=== PATIENT | male | born 1980 | race Caucasian/White ===

== ENCOUNTER 2022-07-04 22:39 | Emergency (ER) | payer OTHER ==
--- OUTSIDE RECORDS SUMMARY | 2022-07-04 22:43 | XMS REPORT | Continuity of Care Document ---
:1980 Author Organization [facility] t Address [address] [place] [address] Care Team Providers Name Role Phone PCP, PATIENT DOES NOT HAVE A Primary Care Physician UnavailVANGIE Barajas Attending Clinician Unavailable Vangie Zepeda MD Attending Clinician Nancy Jones Attending Clinician Doctor Unassigned, [place] Attending Clinician Unavailable Janey Bradley MD Attending Clinician Baylee Starkey Attending Clinician Lab, Adc Fam Pob I Attending Clinician Unavailable BAYLEE CURTIS Attending Clinician Unavailable ZION BRICENO Attending Clinician Unavailable CORKY HARLEY Attending Clinician Unavailable ZION BRICENO Admitting Clinician Unavailable CORKY HARLEY Admitting Clinician Unavailable Payers Payer Name Policy Type Policy Number Effective Date Expiration Date Harris jorge [facility] [id number] 2014 PPO 00:00:00 Problems Condition Condition Condition Status Onset Resolution Last Treating Co mments Source Name Details Category Date Date Treatment Clinician Date No known No known Disease Unive rs active active ity of problems problems [facility] Allergies, Adverse Reactions, Alerts Allergy Allergy Status Severity Reaction(s) Onset Inactive Treating Comm ents Source Name Type Date Date Clinician IODINE Drug Active Hives 2020-0 Univers AND Class 1-10 ity of IODIDE 00:00: [place] CONTAINI 00 Medical NG Branch PRODUCTS Iodine Propensi Active Hives 2019- Univers And ty to 1-10 ity of Iodide adverse 00:00: [place] Containi reaction 00 Medica l ng s Branch Products Social History Social Habit Start Date Stop Date Quantity Comments Source Exposure to Not sure [facility] SARS-CoV-[address] [facility] (event) Branch Tobacco use and 2021-08-29 2021-08-29 Current user Univers ity of exposure 00:00:00 00:00:00 [facility] Alcohol intake 2021-08-29 2021-08-29 Current drinker Unive rsity of 00:00:00 00:00:[address] [facility] (finding) [place] Sex Assigned At [birth year] Universit y of 00:00:00 00:00:00 [facility] Smoking Status Start Date Stop Date Source Current every day smoker 2021-08-29 00:00:00 Uni versity of [facility] Unknown if ever smoked Universit y of [facility] Medications Ordered Filled Start Stop Current Ordering Indication Dosage Frequency Signature Comments Components Source Medication Medication Date Date Medication? Clinician (SIG) Name Name azelastine Yes [id number] 1{spray Use 1 Univers 137 mcg 1-10 } [place] in ity of (0.1 %) 00:00: each [place] nasal spray 00 nostril 2 Med ical (two) Branch times daily. Use in each nostril as directed fluticasone Yes [id number] 1{spray Use 1 Univers propionate 1-10 } [place] in ity o f 50 00:00: each [place] mcg/actuati 00 nostril Medic al on nasal daily. Branch spray benzonatate Yes [id number] 200mg Take 2 Univers 100 mg 1-10 capsules ity of capsule 00:00: by mouth [place] 00 every 8 Medical (eight) Branch hours as needed for Cough. amoxicillin 2021- No [id number] 1{tbl} Take 1 Univers -clavulanat 1-10 -18 tablet by it y of e 00:00: 05:59 mouth 2 [place] (AUGMENTIN) 00 :00 (two) Medical 875-125 mg times Branch per tablet daily for 7 days. casirivimab 2020- No 1200mg 1,200 mg, Univers -imdevimab 04-30 IV ity of (REGEN-COV 08:30: 08:16 [place], [place] (EUA[place] 00 :00 ONCE, 1 Medical injection dose, Sat Branc h 1,200 mg 04/30/21 at 0330, Routine casirivimab 2020- No 1200mg 1,200 mg, Univers -imdevimab 04-30 IV ity of (REGEN-COV 08:30: 08:16 [place] (EUA[place] 00 :00 ONCE, 1 Medical injection dose, Sat Branc h 1,200 mg 04/30/21 at 0330, Routine iopamidol 2020- No [id number] 100mL 100 mL, Univers (ISOVUE 04-30 Intravenou ity o f 370-500 mL) 08:00: 06:40 s, ONCE, 1 [place] injection 00 :00 dose, Sat Medic al 100 mL 04/30/21 at Branch 0300, Routine iopamidol 2020-0 2020- No [id number] 100mL 100 mL, Univers (ISOVUE 04-30 Intravenou ity o f 370-500 mL) 08:00: 06:40 s, ONCE, 1 [place] injection 00 :00 dose, Sat Medic al 100 mL 04/30/21 at Branch 0300, Routine methylpredn 2020- No 125mg 125 mg, IV Univers isolone sod 04-30 Piggyback, i ty of succ 07:15: 06:26 ONCE, 1 [place] (SOLU-MEDRO 00 :00 dose, Sat Med ical L) 04/30/21 at Branch injection 0215, STAT 125 mg diphenhydrA 2020- No 25mg 25 mg, Uni vers MINE 04-30 Slow IV ity of (BENADRYL) 07:15: 06:32 Push, [place] injection 00 :00 ONCE, 1 Medical 25 mg dose, Sat Branch 04/30/21 at 0215, STAT methylpredn 2020- No 125mg 125 mg, IV Univers isolone sod 04-30 Piggyback, i ty of succ 07:15: 06:26 ONCE, 1 [place] (SOLU-MEDRO 00 :00 dose, Sat Med ical L) 04/30/21 at Branch injection 0215, STAT 125 mg diphenhydrA 2020- No 25mg 25 mg, Uni vers MINE 04-30 Slow IV ity of (BENADRYL) 07:15: 06:32 Push, [place] injection 00 :00 ONCE, 1 Medical 25 mg dose, Sat Branch 04/30/21 at 0215, STAT benzonatate Yes [id number] 200mg Take 1 Univers 200 mg 9-11 [id number] capsule by ity of capsule 00:00: mouth 3 [place] (three) Medical times Branch daily as needed for Cough. ibuprofen Yes [id number] 800mg Take 1 Univers 800 mg 9-11 [id number] tablet by ity o f tablet 00:00: mouth [place] 00 every 8 Medical (eight) Branch hours as needed for Temp > 38.5 C. albuterol Yes [id number] 2{puff} Inhale 2 Univers 90 9-11 [id number] Puffs ity of mcg/actuati 00:00: every 4 [place] as on inhaler 00 (four) Medical hours as Branch needed for Wheezing or Shortness of Breath. benzonatate Yes [id number] 200mg Take 1 Univers 200 mg 9-11 [id number] capsule by ity of capsule 00:00: mouth 3 [place] 00 (three) Medical times Branch daily as needed for Cough. ibuprofen Yes [id number] 800mg Take 1 Univers 800 mg 9-11 [id number] tablet by ity o f tablet 00:00: mouth [place] 00 every 8 Medical (eight) Branch hours as needed for Temp > 38.5 C. albuterol Yes [id number] 2{puff} Inhale 2 Univers 90 9-11 [id number] Puffs ity of mcg/actuati 00:00: every 4 [place] as on inhaler 00 (four) Medical hours as Branch needed for Wheezing or Shortness of Breath. ibuprofen Yes [id number] 800mg Take 1 Univers 800 mg 9-11 [id number] tablet by ity o f tablet 00:00: mouth [place] 00 every 8 Medical (eight) Branch hours as needed for Temp > 38.5 C. albuterol 0 Yes [id number] 2{puff} Inhale 2 Univers 90 9-11 [id number] Puffs ity of mcg/actuati 00:00: every 4 [place] as on inhaler 00 (four) Medical hours as Branch needed for Wheezing or Shortness of Breath. benzonatate 0 Yes [id number] 200mg Take 1 Univers 200 mg 9-11 [id number] capsule by ity of capsule 00:00: mouth 3 [place] 00 (three) Medical times Branch daily as needed for Cough. ibuprofen Yes [id number] 800mg Take 1 Univers 800 mg 9-11 [id number] tablet by ity o f tablet 00:00: mouth [place] 00 every 8 Medical (eight) Branch hours as needed for Temp > 38.5 C. albuterol Yes [id number] 2{puff} Inhale 2 Univers 90 9-11 [id number] Puffs ity of mcg/actuati 00:00: every 4 [place] as on inhaler 00 (four) Medical hours as Branch needed for Wheezing or Shortness of Breath. benzonatate 0 2- No [id number] 200mg Take 1 Univers 200 mg 9-11 - [id number] capsule by ity of capsule 00:00: 00:00 mouth 3 [place] 00 :00 (three) Medical times Branch daily as needed for Cough. ibuprofen 2020-0 Yes [id number] 800mg Take 1 U nivers 800 mg 1-02 tablet by ity of tablet 00:00: mouth [place] 00 every 8 Medical (eight) Branch hours. traMADol 50 2020-0 Yes [id number] 50mg Take 1 Univers mg tablet 1-02 tablet by ity o f 00:00: mouth [place] 00 every 6 Medical (six) Branch hours as needed for Pain (scale 4-6). ibuprofen 2020-0 Yes [id number] 800mg Take 1 U nivers 800 mg 1-02 tablet by ity of tablet 00:00: mouth [place] 00 every 8 Medical (eight) Branch hours. traMADol 50 2020-0 Yes [id number] 50mg Take 1 Univers mg tablet 1-02 tablet by ity o f 00:00: mouth [place] 00 every 6 Medical (six) Branch hours as needed for Pain (scale 4-6). ibuprofen 2020-0 Yes [id number] 800mg Take 1 U nivers 800 mg 1-02 tablet by ity of tablet 00:00: mouth [place] 00 every 8 Medical (eight) Branch hours. traMADol 50 2020-0 Yes [id number] 50mg Take 1 Univers mg tablet 1-02 tablet by ity o f 00:00: mouth [place] 00 every 6 Medical (six) Branch hours as needed for Pain (scale 4-6). ibuprofen 2020-0 Yes [id number] 800mg Take 1 U nivers 800 mg 1-02 tablet by ity of tablet 00:00: mouth [place] 00 every 8 Medical (eight) Branch hours. ibuprofen 2020-0 Yes [id number] 800mg Take 1 U nivers 800 mg 1-02 tablet by ity of tablet 00:00: mouth [place] 00 every 8 Medical (eight) Branch hours. traMADol 50 2020-0 Yes [id number] 50mg Take 1 Univers mg tablet 1-02 tablet by ity o f 00:00: mouth [place] 00 every 6 Medical (six) Branch hours as needed for Pain (scale 4-6). ibuprofen 2020-0 Yes [id number] 800mg Take 1 U nivers 800 mg 1-02 tablet by ity of tablet 00:00: mouth [place] 00 every 8 Medical (eight) Branch hours. traMADol 50 2020-0 Yes [id number] 50mg Take 1 Univers mg tablet 1-02 tablet by ity o f 00:00: mouth [place] 00 every 6 Medical (six) Branch hours as needed for Pain (scale 4-6). traMADol 50 2020-0 Yes [id number] 50mg Take 1 Univers mg tablet 1-02 tablet by ity o f 00:00: mouth [place] 00 every 6 Medical (six) Branch hours as needed for Pain (scale 4-6). ibuprofen 2020-0 Yes [id number] 800mg Take 1 U nivers 800 mg 1-02 tablet by ity of tablet 00:00: mouth [place] 00 every 8 Medical (eight) Branch hours. traMADol 50 2020-0 Yes [id number] 50mg Take 1 Univers mg tablet 1-02 tablet by ity o f 00:00: mouth [place] 00 every 6 Medical (six) Branch hours as needed for Pain (scale 4-6). ibuprofen 2020-0 Yes [id number] 800mg Take 1 U nivers 800 mg 1-02 tablet by ity of tablet 00:00: mouth [place] 00 every 8 Medical (eight) Branch hours. traMADol 50 2020-0 Yes [id number] 50mg Take 1 Univers mg tablet 1-02 tablet by ity o f 00:00: mouth [place] 00 every 6 Medical (six) Branch hours as needed for Pain (scale 4-6). ibuprofen 2020-0 Yes [id number] 800mg Take 1 U nivers 800 mg 1-02 tablet by ity of tablet 00:00: mouth [place] 00 every 8 Medical (eight) Branch hours. traMADol 50 2020-0 Yes [id number] 50mg Take 1 Univers mg tablet 1-02 tablet by ity o f 00:00: mouth [place] 00 every 6 Medical (six) Branch hours as needed for Pain (scale 4-6). ibuprofen 2020-0 Yes [id number] 800mg Take 1 U nivers 800 mg 1-02 tablet by ity of tablet 00:00: mouth [place] 00 every 8 Medical (eight) Branch hours. traMADol 50 2020-0 Yes [id number] 50mg Take 1 Univers mg tablet 1-02 tablet by ity o f 00:00: mouth [place] 00 every 6 Medical (six) Branch hours as needed for Pain (scale 4-6). ibuprofen 2020-0 Yes [id number] 800mg Take 1 U nivers 800 mg 1-02 tablet by ity of tablet 00:00: mouth [place] 00 every 8 Medical (eight) Branch hours. traMADol 50 2020-0 Yes [id number] 50mg Take 1 Univers mg tablet 1-02 tablet by ity o f 00:00: mouth [place] 00 every 6 Medical (six) Branch hours as needed for Pain (scale 4-6). Immunizations Ordered Filled Immunization Date Status Comments [facility] e Immunization Name Name Td 2018-09-11 Completed University of 00:00:00 [facility] Td 2018-09-11 Completed University of 00:00:00 [facility] Td 2018-09-11 Completed University of 00:00:00 [facility] Td 2018-09-11 Completed University of 00:00:00 [facility] Td 2018-09-11 Completed University of 00:00:00 [facility] Td 2018-09-11 Completed University of 00:00: [facility] Td 2018-09-11 Completed University of 00:00:00 [facility] Td 2018-09-11 Completed University of 00:00:00 [place] [facility] Td 2018-09-11 Completed University of 00:00:00 [place] [facility] Td 2018-09-11 Completed University of 00:00:00 [place] [facility] Td 2018-09-11 Completed University of 00:00:00 [facility] Vital Signs Vital Name Observation Time Observation Value Comments Source Systolic blood 2021-08-30 00:59:00 116 mm[Hg] Univer sity of pressure [facility] Branch Diastolic blood 2021-08-30 00:59:00 79 mm[Hg] Unive rsity of pressure [facility] Heart rate 2021-08-30 00:59:00 99 /min Universi ty of [facility] Body temperature 2021-08-30 00:59:00 36.94 [place] Univ ersity [facility] Respiratory rate 2021-08-30 00:59:00 18 /min Univ ersity [facility] Body height 2021-08-30 00:59:00 193 cm Universi ty [facility] Body weight 2021-08-30 00:59:00 122.018 kg Universi ty of [facility] BMI 2021-08-30 00:59:00 32.74 kg/m2 Universi ty [facility] Oxygen saturation in 2021-08-30 00:59:00 98 /min University of Arterial blood by [facility] Pulse oximetry Branch Systolic blood 2021-04-30 09:28:00 122 mm[Hg] Univer sity of pressure [facility] Diastolic blood 2021-04-30 09:28:00 73 mm[Hg] Unive rsity of pressure [facility] Heart rate 2021-04-30 09:28:00 74 /min Universi ty of [facility] Branch Respiratory rate 2021-04-30 09:28:00 20 /min Univ ersity [facility] Oxygen saturation in 2021-04-30 09:28:00 95 /min University of Arterial blood by [facility] Pulse oximetry Branch Body temperature 2021-04-30 08:24:00 37.28 [place] Univ ersity of [facility] Body height 2021-04-30 02:35:00 190.5 cm Universi ty of [facility] Body weight 2021-04-30 02:35:00 122.471 kg [facility] BMI 2021-04-30 02:35:00 33.75 kg/m2 [facility] Procedures Procedure Date / Time Performing Clinician Source Performed POCT MOLECULAR FLU 2021-08-30 01:07:00 Nancy Jones [facility] ASSIGNMENT OF BENEFITS 2021-08-30 00:43:42 Doctor Unassigned, No [facility] Name [facility] CT CHEST PULMONARY 2021-04-30 06:47:34 Janey Bradley [facility] ANGIOGRAM [facility] Branch D-DIMER 2021-04-30 04:47:00 Janey Bradley [facility] URINALYSIS 2021-04-30 04:01:00 Janey Bradley [facility] COMP. METABOLIC PANEL 2021-04-30 03:41:00 Janey Bradley [facility] ([id number]) Medical Branch CBC WITH DIFF 2021-04-30 03:41:00 Janey Bradley [facility] COVID-19 (ID NOW RAPID 2021-04-30 03:41:00 Janey Bradley [facility] TESTING) Medical Branch CONSENT/REFUSAL FOR 2021-04-30 02:26:10 Doctor Unassigned, No [facility] DIAGNOSIS AND TREATMENT [facility] NOTICE OF PRIVACY 2021-04-30 02:24:37 Doctor Unassigned, No [facility] PRACTICES Name [facility] Branch AUTHORIZATION FOR 2019-10-06 06:01:00 Doctor Unassigned, No [facility] RELEASE OF [facility] Encounters Start End Encounter Admission Attending Care Care Encounter Source Date/Time Date/Time Type Type Clinicians Facility Department ID 2021-06-20 Emergency [facility] [id number] Univers 21:57:11 [facility] 2021-08-29 2021-08-29 Outpatient Virgil ZEPEDA [facility] [id number] Univers 19:00:00 19:37:18 VANGIE [facility] 2021-08-29 2021-08-29 Urgent Vangie Zepeda [facility] [id number] Univers 19:00:00 19:20:00 Care Nancy Jones HEALTH [id number] ity of [facility] 4.2.7.2.686 [place] as RADHA?BLEA [phone] Oh dical [place] [address] [place] [facility] 2021-08-29 2021-08-29 Orders Doctor CANDIDA [id number] Univers 00:00:00 00:00:00 Only Unassigned, HEBERT [id number] ity of [place] [facility] 4.2.7.2.686 Naresh as [id number] [facility] [address] [place] 2021-04-29 2021-04-30 Emergency [facility] [id number] Univers 21:59:00 04:45:00 Janey Harris [place] 350.1.13.10 ity of [place] 4[place]7.2.686 [place] [phone] [facility] [address] [place] 2021-04-29 2021-04-29 Orders Doctor CANDIDA [id number] Univers 00:00:00 00:00:00 Only Unassigned, HEBERT 350.1.13.10 ity of [place] [facility] 4.2.7.2.686 Naresh as [id number] [facility] [address] [place] 2020-01-01 2020-01-01 Telephone CANDIDA Curtis [id number] Univers 00:00:00 00:00:00 Baylee AMBROSIO 350.1.13.10 i ty of HOSPITAL 4.2.7.2.686 [place] as [id number] [facility] [address] [place] 2019-12-31 2019-12-31 [employer] [facility], Adc Fam Pob I [facility] [id number]. [id number] Univers 11:37:08 11:47:08 Visit Baylee Curtis [facility] 350.1.13.10 ity of [place] 4.2.7.2.686 Na[place] as Professio [phone] Oh karin davis [address] [place] [address] 2019-12-31 2019-12-31 Outpatient R KIRSTEN [facility] [id number] Univers 11:40:00 11:40:00 BAYLEE cline [facility] 2019-10-06 2019-10-06 Orders Doctor CANDIDA [id number] Univers 00:00:00 00:00:00 Only Unassigned, HEBERT 350.1.13.10 ity of [place] [facility] 4.2.7.2.686 Na[place] as [id number] [address] 2019-08-29 2019-08-29 Emergency [facility] [id number] Univers 02:08:14 04:41:00 ZION cline [facility] 2019-08-21 2019-08-21 [facility] [id number] Univers 05:16:23 06:15:00 CORKY [facility] Results Test Description Test Time Test Comments Results Result Comments Source POCT MOLECULAR FLU 2021-08-30 01:19:28 Test Item Value Reference Range Interpretation Comme nts POCT Molecular FluA (test code = 28639-7) Negative Negative POCT Molecular FluB (test code = 40008-8) Negative Negative Lab Interpretation (test code = 32393-2) Normal [id number] 05:24:41 Test Item Value Reference Interpretation Comments Range D-DIMER (test code = See_Comment H [Autom ated 8230858086) message] The system which generated this result transmitted reference range : <0.41 ?g/mL (FEU). The reference range was not used to interpret this result as normal/abnormal . PHIL (test code = This test may be PHIL) used in conjunction with a clinical pretest probability (PTP) assessment model to exclude venous thromboembolism (VTE) in patients suspected of deep venous thrombosis (DVT) and pulmonary embolism (PE) A D-Dimer value less than 0.50 ?g/ml (FEU) has a negative predicative value of 96 to 100% (95% CI)and 97 to 100% (95% CI) as an aid in the diagnosis of deep vein thrombosis (DVT) and pulmonary embolism when there is low or moderate pretest probability of PE or DVT. D-Dimer values are expressed in initial fibrinogen equivalent units (FEU)" The assay results should be used with other information, including the clinical context, in forming a diagnosis. Lab Interpretation Abnormal (test code = 01033-8) [id number] 05:24:41 Test Item Value Reference Interpretation Comments Range D-DIMER (test code = See_Comment H [Autom ated [id number]) message] The system which generated this result transmitted reference range : <0.41 ?g/mL (FEU). The reference range was not used to interpret this result as normal/abnormal . PHIL (test code = This test may be PHIL) used in conjunction with a clinical pretest probability (PTP) assessment model to exclude venous thromboembolism (VTE) in patients suspected of deep venous thrombosis (DVT) and pulmonary embolism (PE) A D-Dimer value less than 0.50 ?g/ml (FEU) has a negative predicative value of 96 to 100% (95% CI)and 97 to 100% (95% CI) as an aid in the diagnosis of deep vein thrombosis (DVT) and pulmonary embolism when there is low or moderate pretest probability of PE or DVT. D-Dimer values are expressed in initial fibrinogen equivalent units (FEU)" The assay results should be used with other information, including the clinical context, in forming a diagnosis. Lab Interpretation Abnormal (test code = 11472-1) [facility] 04:39:22 Test Item Value Reference Range Interpretation Comments APPEARANCE (test code = Clear Clear 9497205611) COLOR (test code = Yellow Yellow 0081531390) PH (test code = 4.8-8.0 6678371880) SP GRAVITY (test code = 1.003-1.030 2670930325) GLU U QUAL (test code = Normal Normal 9403645058) BLOOD (test code = Negative Negative Interfere nce from 6355998104) ascorbic acid m ay cause false neg ative results. KETONES (test code = Negative Negative 6917207577) PROTEIN (test code = Negative Negative 2887-8) UROBILIN (test code = Normal Normal 6591932185) BILIRUBIN (test code = Negative Negative 0480374854) NITRITE (test code = Negative Negative 2091775584) LEUK FIDEL (test code = Negative Negative 3219983159) RBC/HPF (test code = See_Comment [Autom ated message] 1024368808) The system Jingdong generated this result transmitted ref erence range: 0 - 3 HP F. The reference range was not used to int erpret this result as normal/abnormal . WBC/HPF (test code = <1 See_Comment [Autom ated message] 4234052913) The system Jingdong generated this result transmitted ref erence range: 0 - 5 HP F. The reference range was not used to int erpret this result as normal/abnormal . BACTERIA (test code = Few Negative A 1664611484) Lab Interpretation (test Abnormal code = 99716-1) [facility] 04:39:22 Test Item Value Reference Range Interpretation Comments APPEARANCE (test code = Clear Clear 0195448459) COLOR (test code = Yellow Yellow 6785047344) PH (test code = 4.8-8.0 6972985966) SP GRAVITY (test code = 1.003-1.030 4049107522) GLU U QUAL (test code = Normal Normal 1927261438) BLOOD (test code = Negative Negative Interfere nce from 3628415640) ascorbic acid m ay cause false neg ative results. KETONES (test code = Negative Negative 5964768937) PROTEIN (test code = Negative Negative 2887-8) UROBILIN (test code = Normal Normal 0138419572) BILIRUBIN (test code = Negative Negative 9286755236) NITRITE (test code = Negative Negative 7634646687) LEUK FIDEL (test code = Negative Negative 5475700313) RBC/HPF (test code = See_Comment [Autom ated message] 5852298798) The system Jingdong generated this result transmitted ref erence range: 0 - 3 HP F. The reference range was not used to int erpret this result as normal/abnormal . WBC/HPF (test code = <1 See_Comment [Autom ated message] 1544015866) The system Jingdong generated this result transmitted ref erence range: 0 - 5 HP F. The reference range was not used to int erpret this result as normal/abnormal . BACTERIA (test code = Few Negative A 7991193793) Lab Interpretation (test Abnormal code = 06717-8) [facility] (24219)2021-04-30 04:27:36 Test Item Value Reference Range Interpretation Comments NA (test code = 137 mmol/L 135-145 1031046904) K (test code = 3.6 mmol/L 3.5-5.0 3277496549) CL (test code = 100 mmol/L 98-108 9801956260) CO2 TOTAL (test code 28 mmol/L 23-31 = 0230502728) AGAP (test code = 2-16 0250711106) BUN (test code = 8 mg/dL 7-23 7243447985) GLUCOSE (test code = 103 mg/dL 70-110 7821523565) CREATININE (test code 0.96 mg/dL 0.60-1.25 = 2803245026) TOTAL BILI (test code 0.4 mg/dL 0.1-1.1 = 1923671999) CALCIUM (test code = 8.8 mg/dL 8.6-10.6 0454351828) T PROTEIN (test code 7.6 g/dL 6.3-8.2 = 7710538525) ALBUMIN (test code = 4.2 g/dL 3.5-5.0 0058095176) ALK PHOS (test code = 99 U/L 34-122 7837271081) ALTv (test code = 28 U/L 5-50 1742-6) AST(SGOT) (test code 32 U/L 13-40 = 7013577240) eGFR (test code = mL/min/1.73m2 3411981688) PHIL (test code = PHIL) Association of Glomerular Filtration Rate (GFR) and Staging of Kidney Disease* + + +- +| GFR (mL/min/1.73 m2) ?| With Kidney Damage ?| ?Without Kidney Damage+ ------+ ----+ ------+| ?>90 ?| ?Stage one ?| ? Normal ?+ -+ + -+| ?60-89 ?| ?Stage two ?| ? Decreased GFR ? + + +- +| ?30-59 ?| ?Stage three ?| ? Stage three ? + + +- +| ?15-29 ?| ?Stage four ? | ? Stage four ?+ -+ + -+| ?<15 (or dialysis) ? ?| ?Stage five ? | ? Stage five ?+ -+ + -+ *Each stage assumes the associated GFR level has been in effect for at least three months. ?Stages 1 to 5, with or without kidney disease, indicate chronic kidney disease. Notes: Determination of stages one and two (with eGFR >59mL/min/1.73 m2) requires estimation of kidney damage for at least three months as defined by structural or functional abnormalities of the kidney, manifested by either:Pathological abnormalities or Markers of kidney damage (including abnormalities in the composition of the blood or urine or abnormalities in imaging tests). [facility] (99990)2021-04-30 04:27:36 Test Item Value Reference Range Interpretation Comments NA (test code = 137 mmol/L 135-145 1109723607) K (test code = 3.6 mmol/L 3.5-5.0 0686321255) CL (test code = 100 mmol/L 98-108 4460318744) CO2 TOTAL (test code 28 mmol/L 23-31 = 3749980089) AGAP (test code = 2-16 2490302981) BUN (test code = 8 mg/dL 7-23 4449203546) GLUCOSE (test code = 103 mg/dL 70-110 5723283414) CREATININE (test code 0.96 mg/dL 0.60-1.25 = 5077618126) TOTAL BILI (test code 0.4 mg/dL 0.1-1.1 = 4689329817) CALCIUM (test code = 8.8 mg/dL 8.6-10.6 5671165920) T PROTEIN (test code 7.6 g/dL 6.3-8.2 = 3341264644) ALBUMIN (test code = 4.2 g/dL 3.5-5.0 1059889502) ALK PHOS (test code = 99 U/L 34-122 1935217227) ALTv (test code = 28 U/L 5-50 1742-6) AST(SGOT) (test code 32 U/L 13-40 = 6869439176) eGFR (test code = mL/min/1.73m2 5964469409) PHIL (test code = PHIL) Association of Glomerular Filtration Rate (GFR) and Staging of Kidney Disease* + + +- +| GFR (mL/min/1.73 m2) ?| With Kidney Damage ?| ?Without Kidney Damage+ ------+ ----+ ------+| ?>90 ?| ?Stage one ?| ? Normal ?+ -+ + -+| ?60-89 ?| ?Stage two ?| ? Decreased GFR ? + + +- +| ?30-59 ?| ?Stage three ?| ? Stage three ? + + +- +| ?15-29 ?| ?Stage four ? | ? Stage four ?+ -+ + -+| ?<15 (or dialysis) ? ?| ?Stage five ? | ? Stage five ?+ -+ + -+ *Each stage assumes the associated GFR level has been in effect for at least three months. ?Stages 1 to 5, with or without kidney disease, indicate chronic kidney disease. Notes: Determination of stages one and two (with eGFR >59mL/min/1.73 m2) requires estimation of kidney damage for at least three months as defined by structural or functional abnormalities of the kidney, manifested by either:Pathological abnormalities or Markers of kidney damage (including abnormalities in the composition of the blood or urine or abnormalities in imaging tests). [facility]ID [facility])2021-04-30 04:22:54 Test Item Value Reference Range Interpretation Comments SARS-CoV-2 Rapid ID NOW Positive Not Detected A (test code = 04148-0) PHIL (test code = PHIL) ID NOW COVID-19 Assay is an isothermal nucleic acid amplification test intended for the qualitative detection of nucleic acid from SARS-CoV-2 viral RNA in nasopharyngeal (LOGISTICS SOLUTION MANAGER) specimens. It is used under Emergency Use Authorization (EUA) by FDA. The limit of detection (LOD) of the assay is 125 Genome Equivalents/mL. A positive result is indicative of the presence of SARS-CoV-2 RNA. ?Clinical correlation with patient history and other diagnostic information is necessary to determine patient infection status. A negative (Not Detected) result does not preclude SARS-CoV-2 infection. In patients with a high suspicion of SARS-CoV-2 infection, negative results should be treated as presumptive negative and a new specimen should be tested with alternative nucleic acid amplification molecular test. Invalid: Please collect a new specimen for repeat patient testing if clinically indicated. Lab Interpretation Abnormal (test code = 93493-2) [facility]2021-04-30 04:22:54 Test Item Value Reference Range Interpretation Comments SARS-CoV-2 Rapid ID NOW Positive Not Detected A (test code = 46010-8) PHIL (test code = PHIL) ID NOW COVID-19 Assay is an isothermal nucleic acid amplification test intended for the qualitative detection of nucleic acid from SARS-CoV-2 viral RNA in nasopharyngeal (LOGISTICS SOLUTION MANAGER) specimens. It is used under Emergency Use Authorization (EUA) by FDA. The limit of detection (LOD) of the assay is 125 Genome Equivalents/mL. A positive result is indicative of the presence of SARS-CoV-2 RNA. ?Clinical correlation with patient history and other diagnostic information is necessary to determine patient infection status. A negative (Not Detected) result does not preclude SARS-CoV-2 infection. In patients with a high suspicion of SARS-CoV-2 infection, negative results should be treated as presumptive negative and a new specimen should be tested with alternative nucleic acid amplification molecular test. Invalid: Please collect a new specimen for repeat patient testing if clinically indicated. Lab Interpretation Abnormal (test code = 81236-4) [facility] with [id number] 04:21:53 Test Item Value Reference Range Interpretation Comments WBC (test code = See_Comment [Automated 5419-2) message] The sy stem which generated this result transmitted reference range : 4.20 - 10.70 10*3/?L. The reference range was not used to interpret this result as normal/abnormal . RBC (test code = See_Comment [Automated 233-8) message] The sy stem which generated this result transmitted reference range : 4.26 - 5.52 10*6/?L. The reference range was not used to interpret this result as normal/abnormal . HGB (test code = 14.8 g/dL 12.2-16.4 718-7) HCT (test code = 45.5 % 38.4-49.3 4544-3) MCV (test code = 84.3 fL 81.7-95.6 787-2) MCH (test code = 27.4 pg 26.1-32.7 785-6) MCHC (test code = 32.5 g/dL 31.2-35.0 786-4) RDW-SD (test code = 38.4 fL 38.5-51.6 L 70519-9) RDW-CV (test code = 12.5 % 12.1-15.4 788-0) PLT (test code = See_Comment [Automated 777-3) message] The sy stem which generated this result transmitted reference range : 150 - 328 10*3/ ?L. The reference r thony was not used to interpret this result as normal/abnormal . MPV (test code = 10.5 fL 9.8-13.0 78838-5) NRBC/100 WBC (test See_Comment [Automat ed code = 6913490423) message] The system which generated this result transmitted reference range : 0.0 - 10.0 /100 WBCs. The refer ence range was not u sed to interpret th is result as normal/abnormal . NRBC x10^3 (test code <0.01 See_Comment [Auto mated = 3765350074) message] The s ystem which generated this result transmitted reference range : 10*3/?L. The reference range was not used to interpret this result as normal/abnormal . GRAN MAT (NEUT) % 69.3 % (test code = 770-8) IMM GRAN % (test code 0.20 % = 7720408205) LYMPH % (test code = 20.9 % 736-9) MONO % (test code = 9.4 % 5905-5) EOS % (test code = 0.0 % 713-8) BASO % (test code = 0.2 % 706-2) GRAN MAT x10^3(ANC) 3.09 10*3/uL 1.99-6.95 (test code = 3442733232) IMM GRAN x10^3 (test <0.03 0.00-0.06 code = 1819732724) LYMPH x10^3 (test code 0.93 10*3/uL 1.09-3.23 L = 731-0) MONO x10^3 (test code 0.42 10*3/uL 0.36-1.02 = 742-7) EOS x10^3 (test code = <0.03 0.06-0.53 L 711-2) BASO x10^3 (test code <0.03 0.01-0.09 = 704-7) Lab Interpretation Abnormal (test code = 86225-7) [facility] with [id number] 04:21:53 Test Item Value Reference Range Interpretation Comments WBC (test code = See_Comment [Automated 6690-2) message] The sy stem which generated this result transmitted reference range : 4.20 - 10.70 10*3/?L. The reference range was not used to interpret this result as normal/abnormal . RBC (test code = See_Comment [Automated 789-8) message] The sy stem which generated this result transmitted reference range : 4.26 - 5.52 10*6/?L. The reference range was not used to interpret this result as normal/abnormal . HGB (test code = 14.8 g/dL 12.2-16.4 718-7) HCT (test code = 45.5 % 38.4-49.3 4544-3) MCV (test code = 84.3 fL 81.7-95.6 787-2) MCH (test code = 27.4 pg 26.1-32.7 785-6) MCHC (test code = 32.5 g/dL 31.2-35.0 786-4) RDW-SD (test code = 38.4 fL 38.5-51.6 L 41418-0) RDW-CV (test code = 12.5 % 12.1-15.4 788-0) PLT (test code = See_Comment [Automated 777-3) message] The sy stem which generated this result transmitted reference range : 150 - 328 10*3/ ?L. The reference r thony was not used to interpret this result as normal/abnormal . MPV (test code = 10.5 fL 9.8-13.0 98400-1) NRBC/100 WBC (test See_Comment [Automat ed code = 7469953546) message] The system which generated this result transmitted reference range : 0.0 - 10.0 /100 WBCs. The refer ence range was not u sed to interpret th is result as normal/abnormal . NRBC x10^3 (test code <0.01 See_Comment [Auto mated = 7422771384) message] The s ystem which generated this result transmitted reference range : 10*3/?L. The reference range was not used to interpret this result as normal/abnormal . GRAN MAT (NEUT) % 69.3 % (test code = 770-8) IMM GRAN % (test code 0.20 % = 0339361304) LYMPH % (test code = 20.9 % 736-9) MONO % (test code = 9.4 % 5905-5) EOS % (test code = 0.0 % 713-8) BASO % (test code = 0.2 % 706-2) GRAN MAT x10^3(ANC) 3.09 10*3/uL 1.99-6.95 (test code = 6795088248) IMM GRAN x10^3 (test <0.03 0.00-0.06 code = 8435046828) LYMPH x10^3 (test code 0.93 10*3/uL 1.09-3.23 L = 731-0) MONO x10^3 (test code 0.42 10*3/uL 0.36-1.02 = 742-7) EOS x10^3 (test code = <0.03 0.06-0.53 L 711-2) BASO x10^3 (test code <0.03 0.01-0.09 = 704-7) Lab Interpretation Abnormal (test code = 16812-4) [facility]
[2022-07-05] MEDS ORDERED: dexAMETHasone 10 MG/ML VIAL ONE (00:23)
--- NOTE | 2022-07-05 00:52 | EDPHYS ---
Physician Documentation [facility] Name: Bhaskar Jones Age: 41 yrs Sex: Male : 1980 Arrival Date: 07/04/2022 Time: 22:47 Bed 16 Private MD: ED Physician Rony Pérez HPI: 07/04 23:08 This 41 yrs old Male presents to ER via Ambulatory with complaints of Breathing snw Difficulty. 23:08 The patient has shortness of breath at rest, and the patient has a history of asthma. snw Onset: The symptoms/episode began/occurred suddenly, at 21:30. Duration: The symptoms are continuous, but are steadily getting better. The patient's shortness of breath is aggravated by nothing. Associated signs and symptoms: Pertinent positives: sore throat. Severity of symptoms: At their worst the symptoms were moderate. The patient has not experienced similar symptoms in the past. The patient has not recently seen a physician. delbert. Historical: - Allergies: 22:59 Iodine; em6 - Home Meds: 22:59 Albuterol Nebulizer [Active]; em6 - PMHx: 22:59 Asthma; em6 - Immunization history:: Adult Immunizations unknown. - Social history:: Smoking status: unknown. ROS: 23:07 Eyes: Negative for injury, pain, redness, and discharge. snw 23:07 Neck: Negative for injury, pain, and swelling, Cardiovascular: Negative for chest pain, palpitations, and edema. 23:07 Abdomen/GI: Negative for abdominal pain, nausea, vomiting, diarrhea, and constipation, Back: Negative for injury and pain, : Negative for injury, bleeding, discharge, and swelling, MS/Extremity: Negative for injury and deformity, Skin: Negative for injury, rash, and discoloration, Neuro: Negative for headache, weakness, numbness, tingling, and seizure. 23:07 Constitutional: Positive for body aches, poor PO intake. 23:07 ENT: Positive for sore throat. 23:07 Respiratory: Positive for shortness of breath, at rest. Exam: 23:06 Constitutional: This is a well developed, well nourished patient who is awake, alert, snw and in no acute distress. Head/Face: Normocephalic, atraumatic. Eyes: Pupils equal round and reactive to light, extra-ocular motions intact. Lids and lashes normal. Conjunctiva and sclera are non-icteric and not injected. Cornea within normal limits. Periorbital areas with no swelling, redness, or edema. 23:06 Neck: Trachea midline, no thyromegaly or masses palpated, and no cervical lymphadenopathy. Supple, full range of motion without nuchal rigidity, or vertebral point tenderness. No Meningismus. Chest/axilla: Normal chest wall appearance and motion. Nontender with no deformity. No lesions are appreciated. Cardiovascular: Regular rate and rhythm with a normal S1 and S2. No gallops, murmurs, or rubs. Normal PMI, no JVD. No pulse deficits. Respiratory: Lungs have equal breath sounds bilaterally, clear to auscultation and percussion. No rales, rhonchi or wheezes noted. No increased work of breathing, no retractions or nasal flaring. Abdomen/GI: Soft, non-tender, with normal bowel sounds. No distension or tympany. No guarding or rebound. No evidence of tenderness throughout. Back: No spinal tenderness. No costovertebral tenderness. Full range of motion. Skin: Warm, dry with normal turgor. Normal color with no rashes, no lesions, and no evidence of cellulitis. MS/ Extremity: Pulses equal, no cyanosis. Neurovascular intact. Full, normal range of motion. Neuro: Awake and alert, GCS 15, oriented to person, place, time, and situation. Cranial nerves II-XII grossly intact. Motor strength 5/5 in all extremities. Sensory grossly intact. Cerebellar exam normal. Normal gait. 23:06 ENT: TM's: are normal, Nose: is normal, Examination of the other nostril shows no obvious abnormality, Mouth: is normal, Posterior pharynx: erythema, that is moderate, Voice: is normal. Vital Signs: 22:55 BP 153 / 91; Pulse 90; Resp 18; Temp 97.9; Pulse Ox 100% on R/A; Weight 122.47 kg; em6 Height 6 ft. 1 in. (185.42 cm); Pain 0/10; 07/05 00:15 BP 121 / 78; Pulse 67; Resp 16; Pulse Ox 99% on R/A; jb4 07/04 22:55 Body Mass Index 35.62 (122.47 kg, 185.42 cm) em6 MDM: 07/04 22:51 Patient medically screened. snw 07/05 00:52 Data reviewed: vital signs, nurses notes, lab test result(s), radiologic studies. Data snw interpreted: Pulse oximetry: on room air is 100 %. Interpretation: normal. Counseling: I had a detailed discussion with the patient and/or guardian regarding: the historical points, exam findings, and any diagnostic results supporting the discharge/admit diagnosis, lab results, radiology results, to return to the emergency department if symptoms worsen or persist or if there are any questions or concerns that arise at home. Response to treatment: the patient's symptoms have mildly improved after treatment. Special discussion: I have referred the patient to see his PCP for further evaluation of high blood pressure. Based on the history and exam findings, there is no indication for further emergent testing or inpatient evaluation. I discussed with the patient/guardian the need to see the primary care provider for further evaluation of the symptoms. ED course: Pt states he is swallowing easier. Understands to RTED immediately for worsening s/s, concerns.. 07/04 22:57 Order name: Strep; Complete Time: 00:45 snw 07/04 22:57 Order name: Flu; Complete Time: 00:45 snw 07/04 22:57 Order name: Chest Pa And Lat (2 Views) XRAY snw 07/05 00:39 Order name: Throat Culture EDMS Administered Medications: 00:29 Drug: Decadron (dexamethasone) 10 mg {Note: Given PO.} Route: IM; Site: Other; :16 Follow up: Response: No adverse reaction 01:16 Drug: ZyrTEC - Cetirizine 10 mg Route: PO; :16 Follow up: Response: Medication administered at discharge. 01:16 Drug: Pepcid (famotidine) 20 mg Route: PO; :16 Follow up: Response: Medication administered at discharge. jb4 Disposition: 02:58 Co-signature as Attending Physician, Rony Pérez MD I agree with the assessment and rt plan of care. Disposition Summary: 07/05/22 00:51 Discharge Ordered Location: Home snw Condition: Stable snw Diagnosis - Acute pharyngitis, unspecified snw - Elevated blood-pressure reading, without diagnosis of hypertension snw Followup: snw - With: Emergency Department - When: As needed - Reason: Worsening of condition Followup: snw - With: Private Physician - When: 2 - 3 days - Reason: Recheck today's complaints, Continuance of care, Re-evaluation by your physician Discharge Instructions: - Discharge Summary Sheet snw - Pharyngitis snw - How to Take Your Blood Pressure, Kgvo-en-Hvdb snw - DASH Eating Plan snw - Rehydration, Adult snw - Form - Blood Pressure Record Sheet snw Forms: - Medication Reconciliation Form snw - Thank You Letter snw - Antibiotic Education snw - Work release form snw - Prescription Opioid Use snw Prescriptions: - Zyrtec 10 mg Oral Tablet - take 1 tablet by ORAL route once daily As needed; 20 tablet; Refills: 0, snw Product Selection Permitted - Prednisone 20 mg Oral Tablet - take 2 tablets by ORAL route once daily for 5 days; 10 tablet; Refills: 0, snw Product Selection Permitted - Pepcid 20 mg Oral Tablet - take 1 tablet by ORAL route once daily; 20 tablet; Refills: 0, Product snw Selection Permitted Signatures: Dispatcher [employer] EDMS Linsey Kuhn, ATOMIZER ASSEMBLER-C ATOMIZER ASSEMBLER-Csnw Kobe Gupta, YAA RN jb4 Lissy Rivas RN RN em6 Rony Pérez MD MD rt
--- NOTE | 2022-07-05 00:52 | ER ---
Nurse's Notes [facility] Name: Bhaskar Jones Age: 41 yrs Sex: Male : 1980 Arrival Date: 07/04/2022 Time: 22:47 Bed 16 Private MD: Diagnosis: Acute pharyngitis, unspecified;Elevated blood-pressure reading, without diagnosis of hypertension Presentation: 07/04 22:55 Chief complaint: Patient states: "a week ago while sleeping I started feeling shortness em6 of breath while laying down. I do have history of asthma and I was planning to go see a doctor, but yesterday night it got worse. even sitting down in a chair makes me feel short of breath and it feels like throat is closing and its hard to swallow". Coronavirus screen: Client denies travel out of the [place] in the last 14 days. Ebola Screen: Patient negative for fever greater than or equal to 101.5 degrees Fahrenheit, and additional compatible Ebola Virus Disease symptoms. Initial Sepsis Screen: Does the patient meet any 2 criteria? No. Patient's initial sepsis screen is negative. Does the patient have a suspected source of infection? No. Patient's initial sepsis screen is negative. Risk Assessment: Do you want to hurt yourself or someone else? Patient reports no desire to harm self or others. Onset of symptoms was June 27, 2022. 22:55 Method Of Arrival: Ambulatory em6 22:55 Acuity: OLIVE 3 em6 Triage Assessment: 22:57 General: Appears uncomfortable, Behavior is cooperative. Pain: Denies pain. EENT: No em6 signs and/or symptoms were reported regarding the EENT system. Neuro: Level of Consciousness is awake, alert, obeys commands, Oriented to person, place, time, situation, Reports difficulty swallowing. Cardiovascular: Denies chest pain, Heart tones present Patient's skin is warm and dry. Respiratory: Reports shortness of breath at rest Airway is patent Respiratory effort is even, unlabored, Respiratory pattern is regular, symmetrical, Breath sounds are clear bilaterally. Onset: The symptoms/episode began/occurred 06/27/22, the patient has mild shortness of breath. GI: No signs and/or symptoms were reported involving the gastrointestinal system. : No signs and/or symptoms were reported regarding the genitourinary system. Derm: No signs and/or symptoms reported regarding the dermatologic system. Musculoskeletal: Circulation, motion, and sensation intact. Range of motion: intact in all extremities. Historical: - Allergies: 22:59 Iodine; em6 - Home Meds: 22:59 Albuterol Nebulizer [Active]; em6 - PMHx: 22:59 Asthma; em6 - Immunization history:: Adult Immunizations unknown. - Social history:: Smoking status: unknown. Screenin:59 Abuse screen: Denies threats or abuse. Nutritional screening: No deficits noted. em6 Tuberculosis screening: No symptoms or risk factors identified. Assessment: 23:30 General: Appears in no apparent distress. comfortable, Behavior is calm, cooperative. jb4 Pain: Denies pain. Neuro: Level of Consciousness is awake, alert, obeys commands, Oriented to person, place, time, situation. Cardiovascular: Patient's skin is warm and dry. Respiratory: Airway is patent Respiratory effort is even, unlabored, Respiratory pattern is regular, symmetrical. GI: No signs and/or symptoms were reported involving the gastrointestinal system. : No signs and/or symptoms were reported regarding the genitourinary system. EENT: Throat is clear is reddened with gag reflex present. Derm: Skin is intact, Skin is pink, warm \\T\\ dry. Musculoskeletal: Circulation, motion, and sensation intact. Range of motion: intact in all extremities. Vital Signs: 22:55 BP 153 / 91; Pulse 90; Resp 18; Temp 97.9; Pulse Ox 100% on R/A; Weight 122.47 kg; em6 Height 6 ft. 1 in. (185.42 cm); Pain 0/10; 07/05 00:15 BP 121 / 78; Pulse 67; Resp 16; Pulse Ox 99% on R/A; jb4 07/04 22:55 Body Mass Index 35.62 (122.47 kg, 185.42 cm) em6 ED Course: 07/04 22:47 Patient arrived in ED. ja2 22:49 Rony Pérez MD is Attending Physician. rt 22:50 Linsey Kuhn FNP-C [facility]. snw 22:57 Triage completed. em6 22:59 Arm band placed on. em6 23:00 Bed in low position. Call light in reach. Pulse ox on. NIBP on. Warm blanket given. em6 23:14 Flu Sent. em6 23:14 Strep Sent. em6 23:25 Chest Pa And Lat (2 Views) XRAY In Process Unspecified. EDMS 07/05 00:07 Kobe Gupta, RN is Primary Nurse. jb4 01:16 No provider procedures requiring assistance completed. Patient did not have IV access jb4 during this emergency room visit. Administered Medications: 00:29 Drug: Decadron (dexamethasone) 10 mg {Note: Given PO.} Route: IM; Site: Other; jb4 01:16 Follow up: Response: No adverse reaction jb4 01:16 Drug: ZyrTEC - Cetirizine 10 mg Route: PO; jb4 01:16 Follow up: Response: Medication administered at discharge. jb4 01:16 Drug: Pepcid (famotidine) 20 mg Route: PO; jb4 :16 Follow up: Response: Medication administered at discharge. jb4 Outcome: 00:51 Discharge ordered by MD. snw 01:17 Discharged to home ambulatory, with family. jb4 01:17 Condition: stable 01:17 Discharge instructions given to patient, Instructed on discharge instructions, follow up and referral plans. medication usage, Demonstrated understanding of instructions, follow-up care, medications, Prescriptions given X 3. 01:17 Patient left the ED. jb4 Signatures: Dispatcher [employer] EDWI Linsey Kuhn, QUILL LAYER-C QUILL LAYER-Csnw Kobe Gupta, RN RN jb4 Rut Reyes Erika, RN RN em6 Rony Pérez MD MD rt Corrections: (The following items were deleted from the chart) 07/04 22:59 22:55 Chief complaint: Patient states: "a week ago while sleeping I started feeling em6 shortness of breath while laying down. I do have history of asthma and I was planning to go see a doctor, but yesterday night it got worse. even sitting down in a chair makes me feel short of breath and it feels like throat is closing" em6 23:02 22:57 Cardiovascular: Heart tones present Patient's skin is warm and dry. em6 em6
[2022-07-05] MEDS ORDERED: CETIRIZINE HCL 5 MG TABLET ONE (01:13)
[2022-07-05] MEDS ORDERED: FAMOTIDINE 20 MG TAB ONE (01:14)
[2022-07-05 01:21] VITALS: TEMP 97.9
[2022-07-05 01:22] VITALS: BP 121/78; O2SAT 99
--- NOTE | 2022-07-05 10:48 | RAD REPORT ---
EXAM DESCRIPTION: RAD - Chest Pa And Lat (2 Views) - 07/04/2022 11:23 pm CLINICAL HISTORY: 41-year-old male with cough. TECHNIQUE: Two-view, PA and lateral projections of the chest were obtained. COMPARISON: None. FINDINGS: Unremarkable cardiac and mediastinal silhouette. Heart size is normal. Lungs are clear without focal opacity, pneumothorax or pleural effusions. The visualized bones are within normal limits. IMPRESSION: No acute cardiopulmonary abnormalities. Electronically signed by: Sugey Santana MD 07/04/2022 11:38 PM SUPERVISOR EXTRUSION Due to temporary technical issues with the PACS/Fluency reporting system, reports are being signed by the in house radiologists without review as a courtesy to insure prompt reporting. The interpreting radiologist is fully responsible for the content of the report.
== END 2022-07-05 01:17 | disposition home or self-care (01) ==
LOC: ER 22:39
DX: J02.9 Acute pharyngitis, unspecified (principal); R03.0 Elevated blood-pressure reading, without diagnosis of hypertension; R06.02 Shortness of breath; J45.909 Unspecified asthma, uncomplicated; Z91.048 Other nonmedicinal substance allergy status
CPT/HCPCS: 87070; 87081; 87804 ×2; 71046; 96372; 99284; J1100